=== PATIENT | male | born 1975 | race Hispanic/Latino ===

== ENCOUNTER 2019-02-04 23:27 | Emergency (ER) | payer OTHER ==
[~2019-02-04] VITALS: Ht 172.7 cm; Wt 77.3 kg
[2019-02-04 23:27] VITALS: BP 131/85
[2019-02-05] MEDS ORDERED: AUGMENTIN 875 MG TAB PO ONE
[2019-02-05] MEDS ORDERED: dexameTHASONE 4 MG/ML 1ML VIAL (J1100) PO ONE
[2019-02-05] MEDS ORDERED: CLAR5TAB7 PO (00:13)
[2019-02-05] MEDS ORDERED: AUGM875T28 PO (00:13)
[2019-02-05] MEDS ORDERED: IBUP-1022 PO (00:13)
== END 2019-02-05 00:20 | disposition home or self-care (01) ==
LOC: M ED 23:27
DX: J32.9 Chronic sinusitis, unspecified (principal); F17.210 Nicotine dependence, cigarettes, uncomplicated
CPT/HCPCS: 99283; J1100

== ENCOUNTER → 2019-04-15 | Outpatient (CLI) | payer OTHER ==
[~2019-04-15] MED LIST: AUGM875T28 PO; CLAR5TAB7 PO; IBUP-1022 PO
--- NOTE | 2019-04-20 10:29 | SLEEPHOME ---
DATE OF PROCEDURE: 04/15/2019 ORDERED BY: Dr. Bojorquez Diagnostic home sleep testing was performed due to concern for the obstructive sleep apnea syndrome. For testing, a nocturnal T3 respiratory monitoring device was used. Continuous record was made of pulse, oxygen saturation, airflow, chest and abdominal strain and body position. 10 hours and 59 minutes of data were reviewed. There 7 hours and 28 minutes marked as time in bed. During the interval marked time in bed, there were 46 respiratory events identified of 10 seconds in duration or greater for a respiratory event index of 6.2. The events were primarily obstructive. 12 central and mixed apneas were seen. Baseline pulse rate 63 beats per minute, pulse rate ranged from 44 to 92. Baseline saturation was 95%. Saturation did fall to 88% and testing was performed in both supine and nonsupine positions. IMPRESSION: Abnormal home sleep testing with repetitive respiratory events and oxygen desaturations to 88% with a respiratory event index of 6.2 is consistent with the obstructive sleep apnea syndrome. RECOMMENDATIONS: The patient should be encouraged to undergo formal sleep evaluation.
== END ==
LOC: M SLEEP HO 10:02
PROVIDERS: ATTEND Internal Medicine Cardiovascular Disease
DX: R06.83 Snoring (principal)

== ENCOUNTER → 2019-05-10 | Outpatient (CLI) | payer OTHER ==
--- NOTE | 2019-05-12 07:56 | REP ---
Clinical: Chest pain. Technique: Axial noncontrast images from the thoracic inlet to the upper abdomen with coronal and sagittal re-formations. Comparison: None. Findings: Bilateral lung galvez are symmetric, well aerated, and clear. No acute consolidation, significant nodule, or mass lesion. No pleural effusion. No pneumothorax. Tracheobronchial tree is patent. No obvious adenopathy. Mediastinum demonstrates normal thoracic aorta, pulmonary vasculature and heart/pericardium. Limited upper abdomen demonstrates normal bilateral adrenal glands. Impression: Normal noncontrast chest CT. No acute mediastinal or pleuroparenchymal process. Electronically Signed by Trever Salinas MD 05/12/2019 07:47 A
== END ==
LOC: M RAD 06:42
PROVIDERS: ATTEND Physician Assistant
DX: R07.89 Other chest pain (principal)